=== PATIENT | male | born 1945 | race Caucasian/White ===

== ENCOUNTER → 2023-01-16 12:56 | Outpatient (BNVA) | payer MEDICARE, SELFPAY | PROVIDERS: PCP Nurse Practitioner; Referring Provider Nurse Practitioner; Visit Provider Dermatology | DX: L57.8 Other skin changes due to chronic exposure to nonionizing radiation (principal); L57.0 Actinic keratosis; D48.5 Neoplasm of uncertain behavior of skin | CPT/HCPCS: 17004; 69100; 99203 ==

== ENCOUNTER → 2023-10-06 11:08 | Outpatient (BNVA) | payer MEDICARE, OTHER, SELFPAY | PROVIDERS: PCP Nurse Practitioner; Visit Provider Nurse Practitioner Family | DX: L57.0 Actinic keratosis (principal); D22.5 Melanocytic nevi of trunk; L81.4 Other melanin hyperpigmentation; L57.8 Other skin changes due to chronic exposure to nonionizing radiation | CPT/HCPCS: 17000; 99213 ==

== ENCOUNTER → 2023-12-08 08:08 | Outpatient (BNVA) | payer MEDICARE, OTHER, SELFPAY | PROVIDERS: PCP Nurse Practitioner; Visit Provider Nurse Practitioner Family | DX: L57.0 Actinic keratosis (principal); D22.5 Melanocytic nevi of trunk; L81.4 Other melanin hyperpigmentation; L57.8 Other skin changes due to chronic exposure to nonionizing radiation | CPT/HCPCS: 17000; 99213 ==

== ENCOUNTER → 2024-09-13 10:35 | Outpatient (BNVA) | payer MEDICARE, OTHER, SELFPAY | PROVIDERS: PCP Nurse Practitioner; Referring Provider Nurse Practitioner Family; Visit Provider Anesthesiology Pain Medicine | DX: M54.9 Dorsalgia, unspecified (principal); M51.16 Intervertebral disc disorders with radiculopathy, lumbar region; S32.000A Wedge compression fracture of unspecified lumbar vertebra, initial encounter for closed fracture; M47.816 Spondylosis without myelopathy or radiculopathy, lumbar region; X58.XXXA Exposure to other specified factors, initial encounter | CPT/HCPCS: 99204 ==

== ENCOUNTER 2024-09-17 13:55 | Outpatient (CLI) | payer MEDICARE, OTHER, SELFPAY ==
--- NOTE | 2024-09-17 14:30 | MR_ITS ---
WS: [id number] MRI LUMBAR SPINE NONCONTRAST HISTORY: M54.16 - Radiculopathy, lumbar region COMPARISON: None available. TECHNIQUE: Sagittal and axial multisequence imaging is submitted. Increase in thoracic kyphosis. Multiple thoracic and lumbar spine compression fractures. T8: Compression fracture, age indeterminate, 20%. T9: Severe compression fracture without retropulsion. T11: 60% compression fracture, appears remote. T12: 50% compression fracture appears old. L1: Compression fracture 75% without retropulsion appears old. L3 compression fracture by 40% chronic, 2 mm retropulsion of the posterior superior endplate. Schmorl's node along the inferior endplate. L4: Mild compression deformity. Chronic appearing fracture. L5: 20% compression fracture. There is a small amount of edema in the L5 vertebral body consistent with an acute fracture. Acute marrow edema extends into the LEFT pedicle. Increase in lumbar lordosis. Disc spaces are desiccated. Conus terminates normally at L1-2 disc level. T11-12: Disc bulging, retrolisthesis posterior superior endplate of T12. Mild encroachment upon the ventral thecal sac and subarticular recesses. Mild central, subarticular recess and moderate foraminal stenosis. T12-L1: Annular disc bulge and osteophytic ridging. Mild central and subarticular recess and foraminal stenosis. L1-L2: Diffuse annular disc bulging. Subarticular recess encroachment by disc and osteophyte disease. Mild central and bilateral subarticular recess stenosis. L2-L3: Diffuse annular disc bulging with osteophytic ridging, marked facet and ligamentum flavum hypertrophy. Central disc protrusions. Severe central, bilateral subarticular recess and moderate foraminal stenosis. L3-L4: Diffuse annular disc bulging with osteophytic ridging, ligamentum flavum and facet arthritis. Severe central, bilateral subarticular recess and moderate foraminal stenosis. L4-L5: Diffuse annular disc bulging with central disc protrusion. Severe ligamentum flavum and facet arthritis. There is significant disc encroachment upon the traversing RIGHT L5 nerve root. Moderate central, subarticular recess and bilateral foraminal stenosis. L5-S1: Annular disc bulge with a central disc protrusion. Moderate bilateral facet joint arthritis and ligamentum flavum hypertrophy. Mild central, subarticular recess and foraminal stenosis. Paravertebral soft tissues demonstrate RIGHT renal cyst. Mildly ectatic tortuous aorta. MR/MR lumbar spine wo con* [id number] IMPRESSION: 1. 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 2. Acute 20% L5 compression fracture with edema extending into the LEFT pedicl e also. 3. Multilevel areas of central, subarticular recess and foraminal stenoses fro m T11-12 through L5-S1. 4. Most significant stenosis at L2-3, L3-4 and L4-5. 5. Marked facet joint arthritis and ligamentum flavum hypertrophy throughout t he lumbar spine. Most significant from L2-3 through L4-5.
== END 2024-09-17 13:56 | disposition home or self-care (01) ==
LOC: RAD 13:58
PROVIDERS: PCP Family Medicine; Visit Provider Anesthesiology Pain Medicine
DX: M54.16 Radiculopathy, lumbar region (principal); M80.88XD Other osteoporosis with current pathological fracture, vertebra(e), subsequent encounter for fracture with routine healing; M48.04 Spinal stenosis, thoracic region; M48.05 Spinal stenosis, thoracolumbar region; M48.061 Spinal stenosis, lumbar region without neurogenic claudication; M48.07 Spinal stenosis, lumbosacral region; M47.896 Other spondylosis, lumbar region; M24.28 Disorder of ligament, vertebrae; M40.294 Other kyphosis, thoracic region; M51.46 Schmorl's nodes, lumbar region; R93.7 Abnormal findings on diagnostic imaging of other parts of musculoskeletal system; M51.34 Other intervertebral disc degeneration, thoracic region; M51.35 Other intervertebral disc degeneration, thoracolumbar region; M25.78 Osteophyte, vertebrae; M51.26 Other intervertebral disc displacement, lumbar region; M51.379 Other intervertebral disc degeneration, lumbosacral region without mention of lumbar back pain or lower extremity pain; M47.897 Other spondylosis, lumbosacral region; N28.1 Cyst of kidney, acquired; R93.89 Abnormal findings on diagnostic imaging of other specified body structures
CPT/HCPCS: 72148

== ENCOUNTER → 2024-10-11 14:01 | Outpatient (BNVA) | payer MEDICARE, OTHER, SELFPAY | PROVIDERS: PCP Family Medicine; Visit Provider Anesthesiology Pain Medicine | DX: M54.9 Dorsalgia, unspecified (principal); M51.16 Intervertebral disc disorders with radiculopathy, lumbar region; S32.000A Wedge compression fracture of unspecified lumbar vertebra, initial encounter for closed fracture; M47.816 Spondylosis without myelopathy or radiculopathy, lumbar region; X58.XXXA Exposure to other specified factors, initial encounter | CPT/HCPCS: 99214 ==

== ENCOUNTER → 2024-10-21 08:34 | Outpatient (BNVA) | payer MEDICARE, OTHER, SELFPAY | PROVIDERS: PCP Family Medicine; Visit Provider Nurse Practitioner Family | DX: L81.4 Other melanin hyperpigmentation (principal); L57.8 Other skin changes due to chronic exposure to nonionizing radiation; X32.XXXA Exposure to sunlight, initial encounter; L73.8 Other specified follicular disorders; L82.1 Other seborrheic keratosis; D48.5 Neoplasm of uncertain behavior of skin; L57.0 Actinic keratosis | CPT/HCPCS: 11102; 17000; 99213 ==